=== PATIENT | male | born 1960 | race Two or more races ===

== ENCOUNTER 2018-05-13 10:59 | Outpatient (CLI) | payer OTHER | END 2018-05-13 11:08 | disposition home or self-care (01) | LOC: TOM 10:59 | DX: J43.2 Centrilobular emphysema (principal); G47.33 Obstructive sleep apnea (adult) (pediatric); R91.1 Solitary pulmonary nodule; Z87.891 Personal history of nicotine dependence; E66.01 Morbid (severe) obesity due to excess calories ==

== ENCOUNTER 2018-07-25 14:03 | Outpatient (CLI) | payer OTHER ==
[~2018-07-25] VITALS: Ht 172.7 cm; Wt 94.3 kg
== END 2018-07-25 14:20 | disposition home or self-care (01) ==
LOC: OFIC 805 14:03
DX: J30.89 Other allergic rhinitis (principal); R09.81 Nasal congestion; H61.23 Impacted cerumen, bilateral

== ENCOUNTER 2018-07-28 07:37 | Outpatient (CLI) | payer OTHER | END 2018-07-28 07:41 | disposition home or self-care (01) | LOC: SONOGRAMA 07:37 | DX: R74.8 Abnormal levels of other serum enzymes (principal) ==

== ENCOUNTER 2018-08-22 13:11 | Outpatient (CLI) | payer OTHER ==
[~2018-08-22] VITALS: Ht 152.4 cm; Wt 94.3 kg
== END 2018-08-22 13:30 | disposition home or self-care (01) ==
LOC: OFIC 805 13:11
DX: R09.81 Nasal congestion (principal); J30.89 Other allergic rhinitis

== ENCOUNTER → 2019-06-12 | Outpatient (CLI) | payer BC | END | disposition home or self-care (01) | LOC: TOM 09:40 | DX: J43.2 Centrilobular emphysema (principal); G47.33 Obstructive sleep apnea (adult) (pediatric); R91.1 Solitary pulmonary nodule; Z87.891 Personal history of nicotine dependence; E66.01 Morbid (severe) obesity due to excess calories ==

== ENCOUNTER 2025-01-17 13:59 | Emergency (ER) | payer OTHER ==
[~2025-01-17] VITALS: Ht 170.2 cm; Wt 95.7 kg
[2025-01-17] MEDS ORDERED: ATORVASTATIN CA10 MG PO (14:37)
[2025-01-17] MEDS ORDERED: MONTELUKAST SOD10 MG PO (14:38)
[2025-01-17] MEDS ORDERED: KETOROLAC TROMETHAMINE 60 MG VIAL IM ONE ×2 (14:38→14:45)
[2025-01-17] MEDS ORDERED: DICLOFENAC SODI75 MG PO (15:26)
== END 2025-01-17 15:41 | disposition home or self-care (01) ==
LOC: ER 14:29
DX: M25.551 Pain in right hip (principal); W18.39XA Other fall on same level, initial encounter; Y93.89 Activity, other specified; Y92.89 Other specified places as the place of occurrence of the external cause; Z88.8 Allergy status to other drugs, medicaments and biological substances
CPT/HCPCS: 73521; 96372; 99283; J1885